=== PATIENT | male | born 1960 | race Caucasian/White ===

== ENCOUNTER 2022-06-03 08:29 | Inpatient (IN) | payer OTHER ==
[~2022-06-03] VITALS: Ht 190.5 cm; Wt 84.5 kg
[2022-06-03 19:35] LABS: Hematocrit 43.7 % (37.0-53.0); Hemoglobin 15.4 g/dL (13.5-17.5); Mean Corpuscular HGB 33.4 pg (26.0-34.0); Mean Corpuscular HGB Conc 35.2 g/dL (31.5-36.5); Mean Corpuscular Volume 95 fL (80-100); Platelet Count 149 K/mm3 (150-400); RDW Standard Deviation 45.2 fL (35.1-46.3); Red Blood Cell Count 4.61 M/mm3 (4.30-5.90); White Blood Cell Count 8.83 K/mm3 (4.00-11.30)
[2022-06-03 19:52] LABS: Bun/Creatinine Ratio 30.1 (12.0-20.0); Calcium, Blood 9.1 mg/dL (8.5-10.1); Creatinine, Blood 0.87 mg/dL (0.60-1.20); Potassium, Blood 3.9 mmol/L (3.5-5.5)
[2022-06-03] MEDS ORDERED: ACET500 PO (20:20)
[2022-06-03] MEDS ORDERED: ALEVE220 MG PO (20:21)
--- NOTE | 2022-06-03 20:23 | NUR ---
NEW ADMIT PT ARRIVED AT SHIFT CHANGE 1844, ADMITTED FOR LOW BACK PAIN R/T DISK EXTRUSION. AWAITING SURGICAL BED UP AT [facility] IN [place]. ORIENTED TO RM & CALL LIGHT. WILL MONITOR.
--- NOTE | 2022-06-03 20:37 | NUR ---
SHIFT SUMMARY PTN DAVID FROM ER AT 1830, A&O X4, WITH INTRACTABLE BACK PAIN. PTN AWAITS BED FOR SURGERY IN [place]. QUICK ADMIT DONE. PASS-DOWN TO NIGHT NURSE.
--- NOTE | 2022-06-04 05:28 | NUR ---
Rn summary: Patient was admitted at the beginning of shift from the ED. Patient is alert and oriented x4. Pt is very painful with sharp shooting pain down rt leg and throbbing in rt leg. Pt has been bedrest. Pt medicated with oxy and flexeril and then Dilaudid 1mg IV later. Pt has been able to rest well for several hours. Awake at 0500, medicated again with flexeril and oxy. Pt using urinal. Snack given. Plan for transfer to [place] for surgery when bed available. Call light in reach. Able to make needs known.
--- NOTE | 2022-06-04 17:58 | NUR ---
SHIFT SUMMARY PT HAS BEEN IN PAIN MOST OFHTE THE DAY WITH RELIEF FINALLY AFTER AN INCREASE IN DILAUDID PER EMAR. DIFFERENTE MEDICATIONS WERE GIVEN, BUT PT WAS SOBBING IN PAIN AND HAVING ACID REFULX UNTIL 2 MG DILAUDID GIVEN THIS AFTERNOON. SINCE THEN PT HAS SLEPT AND IS FEELING MORE MANAGED. HE IS EAGER TO TRANSFER, BUT WE ARE STILL WAITING ON NEWS FOR THAT. GIRLFRIEND HAS BEEN IN THE ROM MOST OF THE DAY. PT REMAINS ON BEDREST AND USING THE URINAL. BED IN LOWEST POSITION AND CALL LIGHT IN REACH
--- NOTE | 2022-06-05 05:02 | NUR ---
SHIFT SUMMARY: PT IS ALERT AND ORIENTED. PT IS CALM AND COOPERATIVE WITH CARE. PT CALLS APPROPRIATELY. PT IS A STANDBY ASSIST TO THE [facility]. PT REPORTS PAIN ON SEVERAL OCCASIONS THROUGHOUT THE NIGHT, MEDICATING PER EMAR. PT REPORTS NAUSEA R/T GABAPENTIN ADMINISTARTION, MEDICATED WITH PRN ZOFRAN. PT DENIES VOMITING AND SOB. PT SLEPT MUCH OF THE NIGHT WHEN NOT DISTURBED. AWAITING TRANSFER TO [facility] WHEN BED AVAILABLE. NO ACUTE CHANGES OR COMPLICATIONS. BED IN LOW POSITION, CALL LIGHT WITHIN REACH. WILL CONTINUE TO MONITOR.
[2022-06-05 15:59] LABS: Source, Urine Clean Catch
[2022-06-05 16:07] LABS: Appearance, Urine Clear (Clear); Bilirubin, Urine Neg (Neg); Blood, Urine Neg (Neg); Glucose Qualitative, Urine Neg (Neg); Ketones, Urine Neg (Neg); Leukocyte Esterase, Urine Neg (Neg); Nitrite, Urine Neg (Neg); Protein, Urine Neg (Neg); Specific Gravity, Urine 1.005 (1.003-1.022); Urobilinogen, Urine NORM (Normal)
[2022-06-05 16:20] LABS: Color, Urine Pale Yellow (P-Yellow)
--- NOTE | 2022-06-05 16:55 | NUR ---
SHIFT SUMMARY- PT IS A/O PLESANT AND COOPERATIVE. HE IS EATING AND DRINKING WELL. HE IS RECIEVING PAIN MEDICATION NEEDED. UA RAN DUE TO PT REPORTING IRRITATION WITH URINATION. PT TOOK A SHOWER THIS SHIFT. GIRLFRIEND AT BEDSIDE MOST OF THIS SHIFT. BED IN THE LOW POSITON AND CALL LIGHT IS WITIN REACH.
--- NOTE | 2022-06-06 18:10 | NUR ---
SHIFT SUMMARY PT ATTEMPTED TO HAVE BM ON TOILET TODAY WITH NO RESULT. REPORTS WEAKNESS CONTINUES TO RLE AND PAIN WITH CRAMPING OR SPASMS TO BACK AND LEGS. S.O. AT BEDSIDE MOST OF DAY WITH HIS SMALL DOG. EATING AND DRINKING. NAPPING THIS AFTERNOON. INCREASED MOBILITY CAUSES SIGNIFICANTLY MORE PAIN. WILL REPORT TO ONCOMING SHIFT.
--- NOTE | 2022-06-06 20:49 | NUR ---
DISCHARGED TO [facility] BY AMBULANCE AT 2039. MEDICATED WITH 1MG IV DILAUDID JUST PRIOR TO RIDE. REPORT PAGE CALLED TO AT [facility].
== END 2022-06-06 20:47 | disposition short-term general hospital (02) | DRG 552 ==
LOC: ER 08:29 → MEDS 17:36 → ERHOLD 17:36 → MEDS 18:48
PROVIDERS: ADMIT Internal Medicine
DX: M51.16 Intervertebral disc disorders with radiculopathy, lumbar region (principal); R30.0 Dysuria; Z88.8 Allergy status to other drugs, medicaments and biological substances; Z87.891 Personal history of nicotine dependence; Z87.81 Personal history of (healed) traumatic fracture
CPT/HCPCS: 36415; 51798; 72100; 72148; 80048; 81003; 85027; 96372-59; 96374; 96375; 99285-25; A9270; J1100; J1170; J1650; J1885; J2405; J3010; J7120